=== PATIENT | female | born 1990 | race Caucasian/White ===

== ENCOUNTER 2017-03-26 10:41 | Emergency (ER) | payer BC, OTHER ==
[2017-03-26 10:47] VITALS: RESP 16
[2017-03-26] MEDS ORDERED: KETOROLAC 30 MG/ML 1 ML VIAL IVP STA (11:28)
[2017-03-26] MEDS ORDERED: ONDANSETRON 4 MG/2 ML VIAL IVP STA (11:28)
[2017-03-26 11:29] LABS: Appearance,Urine Clear (Clear); Bilirubin,Urine Negative (Negative); Blood,Urine Negative (Negative); Color,Urine Red; Glucose,Urine (UA) 4+ (Negative); Leukocyte Esterase,Urine Negative (Negative); Nitrite,Urine Negative (Negative); PH, Urine 5.5 (5.0-8.0); Protein,Urine Negative (Negative); Specific Gravity,Urine 1.021 (1.001-1.035); Urobilinogen,Urine <2.0 mg/dL (<2.0)
[2017-03-26 11:35] LABS: Ketones,Urine 2+ (Negative)
[2017-03-26] MEDS ORDERED: SODIUM CHLORIDE 0.9% 1,000 ML IV ONE (11:46)
[2017-03-26 12:06] LABS: Basophils % (A) 0 %; Eosinophils % (A) 1 %; HCT 41.7 % (34.0-46.0); HGB 13.4 gm/dL (11.4-16.0); Lymphocytes # (A) 0.5 k/uL (1.0-4.8); Lymphocytes % (A) 7 %; MCH 29.1 pg (25.0-35.0); MCHC 32.2 g/dL (31.0-37.0); MCV 90.4 fL (80.0-100.0); Mean Platelet Volume 7.7; Monocytes # (A) 0.2 k/uL (0-1.0); Monocytes % (A) 3 %; Neutrophils # (A) 6.7 k/uL (1.3-7.7); Neutrophils % (A) 89 %; Platelet Count 267 k/uL (150-450); RBC 4.61 m/uL (3.80-5.40); RDW 12.5 % (11.5-15.5); WBC 7.5 k/uL (3.8-10.6)
[2017-03-26 12:16] LABS: ALT 55 U/L (9-52); AST 38 U/L (14-36); Albumin 4.1 g/dL (3.5-5.0); Alkaline Phosphatase 107 U/L (38-126); Anion Gap 10 mmol/L; Blood Urea Nitrogen 12 mg/dL (7-17); Calcium 9.5 mg/dL (8.4-10.2); Carbon Dioxide 26 mmol/L (22-30); Chloride 102 mmol/L (98-107); Glucose 276 mg/dL (74-99); Potassium 4.8 mmol/L (3.5-5.1); Sodium 138 mmol/L (137-145); Total Bilirubin 1.2 mg/dL (0.2-1.3)
--- NOTE | 2017-03-26 12:26 | ED ---
Abdominal Pain HPI - General Chief Complaint: Abdominal Pain Stated Complaint: poss uti Time Seen by Provider: 03/26/17 11:15 Source: patient, RN notes reviewed, old records reviewed Mode of arrival: ambulatory Limitations: no limitations - History of Present Illness Initial Comments: Patient is a pleasant 26-year-old female presents emergency Department chief complaint of an episode of severe flank pain and back pain that occurred this morning. She reports she had vomiting as well. She states that the pain lasted for 30 minutes and started to subside. She was treated for urinary tract infection with Macrobid and started the antibiotics yesterday. She states that she's had no fever or chills. Denies any previous nausea or vomiting besides the one episode today. She states that she has no significant surgical history besides a hip surgery many years ago. She is a type I diabetic. Her blood sugars have been running normal. - Related Data Home Medications Medication Instructions Recorded Confirmed INSULIN LISPRO (For Pump) [humaLOG 0.01 units SQ-PUMP CONTINUOUS 03/26/17 (For Pump)] Levothyroxine Sodium [Synthroid] 88 mcg PO DAILY 03/26/17 03/26/17 Nitrofurantoin Monohyd/M-Cryst 100 mg PO BID 03/26/17 03/26/17 [Macrobid] Previous Rx's Medication Instructions Recorded Ketorolac [Toradol] 10 mg PO TID PRN #15 tab 03/26/17 Ondansetron Odt [Zofran Odt] 4 mg PO Q8HR PRN #12 tab 03/26/17 Allergies Allergy/AdvReac Type Severity Reaction Status Date / Time fluconazole Allergy Rash/Hives Verified 03/26/17 12:16 Review of Systems ROS Statement: Those systems with pertinent positive or pertinent negative responses have been documented in the HPI. ROS Other: All systems not noted in ROS Statement are negative. Past Medical History Past Medical History: Diabetes Mellitus, Thyroid Disorder Additional Past Medical History / Comment(s): type 1 diabetic History of Any Multi-Drug Resistant Organisms: None Reported Additional Past Surgical History / Comment(s): hip surg Past Psychological History: No Psychological Hx Reported Smoking Status: Never smoker Past Alcohol Use History: Occasional Past Drug Use History: None Reported General Exam - General Exam Comments Initial Comments: 26-year-old female. No distress. Limitations: no limitations General appearance: alert, in no apparent distress Head exam: Present: atraumatic, normocephalic, normal inspection Eye exam: Present: normal appearance, PERRL, EOMI. Absent: scleral icterus, conjunctival injection, periorbital swelling ENT exam: Present: normal exam, mucous membranes moist Neck exam: Present: normal inspection. Absent: tenderness, meningismus, lymphadenopathy Respiratory exam: Present: normal lung sounds bilaterally. Absent: respiratory distress, wheezes, rales, rhonchi, stridor Cardiovascular Exam: Present: regular rate, normal rhythm, normal heart sounds. Absent: systolic murmur, diastolic murmur, rubs, gallop, clicks GI/Abdominal exam: Present: soft, tenderness (Leftt CVA tenderness.), normal bowel sounds. Absent: distended, guarding, rebound, rigid Extremities exam: Present: normal inspection, full ROM, normal capillary refill. Absent: tenderness, pedal edema, joint swelling, calf tenderness Back exam: Present: normal inspection Neurological exam: Present: alert, oriented X3, CN II-XII intact Psychiatric exam: Present: normal affect, normal mood Course Vital Signs 03/26/17 03/26/17 10:43 13:23 Temperature 97.9 F 98.0 F Pulse Rate 74 80 Respiratory 16 16 Rate Blood Pressure 115/69 113/69 O2 Sat by Pulse 100 98 Oximetry Medical Decision Making - Medical Decision Making 26-year-old type I diabetic presents today with sudden onset of sided flank pain and nausea and some vomiting. She [employer] reports her pain resolved. She is being treated for urinary tract infection with Macrobid. She started antibiotics yesterday. The patient has some minimal left CVA tenderness. No fever or chills. Patient is given IV fluids are obtained. Patient's labwork shows no leukocytosis. Urinalysis shows +2+ ketones and glucose. No other major symptoms at this time. Patient's urinalysis shows no blood in it. Discussed the patient likely has episodes of renal colic. Could' ve passed a stone. Discussed that I will discharge her with pain medicine and nausea medicine. She reports that she has 0 pain at this time. Discussed continuing the Macrobid antibiotic. Patient agrees treatment plan will comply. Return parameters were discussed. - Lab Data Result diagrams: 03/26/17 11:45 03/26/17 11:45 Lab Results 03/26/17 03/26/17 03/26/17 Range/Units 11:05 11:05 11:45 WBC 7.5 (3.8-10.6) k/uL RBC 4.61 (3.80-5.40) m/uL Hgb 13.4 (11.4-16.0) gm/dL Hct 41.7 (34.0-46.0) % MCV 90.4 (80.0-100.0) fL MCH 29.1 (25.0-35.0) pg MCHC 32.2 (31.0-37.0) g/dL RDW 12.5 (11.5-15.5) % Plt Count 267 (150-450) k/uL Neutrophils % 89 % Lymphocytes % 7 % Monocytes % 3 % Eosinophils % 1 % Basophils % 0 % Neutrophils # 6.7 (1.3-7.7) k/uL Lymphocytes # 0.5 L (1.0-4.8) k/uL Monocytes # 0.2 (0-1.0) k/uL Eosinophils # 0.0 (0-0.7) k/uL Basophils # 0.0 (0-0.2) k/uL Sodium (137-145) mmol/L Potassium (3.5-5.1) mmol/L Chloride (98-107) mmol/L Carbon Dioxide (22-30) mmol/L Anion Gap mmol/L BUN (7-17) mg/dL Creatinine (0.52-1.04) mg/dL Est GFR (MDRD) Af Amer (>60 ml/min/1.73 sqM) Est GFR (MDRD) Non-Af (>60 ml/min/1.73 sqM) Glucose (74-99) mg/dL Calcium (8.4-10.2) mg/dL Total Bilirubin (0.2-1.3) mg/dL AST (14-36) U/L ALT (9-52) U/L Alkaline Phosphatase (38-126) U/L Total Protein (6.3-8.2) g/dL Albumin (3.5-5.0) g/dL Urine Color Red Urine Appearance Clear (Clear) Urine pH 5.5 (5.0-8.0) Ur Specific [place] 1.021 (1.001-1.035) Urine Protein Negative (Negative) Urine Glucose (UA) 4+ H (Negative) Urine Ketones 2+ H (Negative) Urine Blood Negative (Negative) Urine Nitrite Negative (Negative) Urine Bilirubin Negative (Negative) Urine Urobilinogen <2.0 (<2.0) mg/dL Ur Leukocyte Esterase Negative (Negative) Urine HCG, Qual Not Detected (Not Detectd) Acetone, Qual (Negative) 03/26/17 Range/Units 11:45 WBC (3.8-10.6) k/uL RBC (3.80-5.40) m/uL Hgb (11.4-16.0) gm/dL Hct (34.0-46.0) % MCV (80.0-100.0) fL MCH (25.0-35.0) pg MCHC (31.0-37.0) g/dL RDW (11.5-15.5) % Plt Count (150-450) k/uL Neutrophils % % Lymphocytes % % Monocytes % % Eosinophils % % Basophils % % Neutrophils # (1.3-7.7) k/uL Lymphocytes # (1.0-4.8) k/uL Monocytes # (0-1.0) k/uL Eosinophils # (0-0.7) k/uL Basophils # (0-0.2) k/uL Sodium 138 (137-145) mmol/L Potassium 4.8 (3.5-5.1) mmol/L Chloride 102 (98-107) mmol/L Carbon Dioxide 26 (22-30) mmol/L Anion Gap 10 mmol/L BUN 12 (7-17) mg/dL Creatinine 0.70 (0.52-1.04) mg/dL Est GFR (MDRD) Af Amer >60 (>60 ml/min/1.73 sqM) Est GFR (MDRD) Non-Af >60 (>60 ml/min/1.73 sqM) Glucose 276 H (74-99) mg/dL Calcium 9.5 (8.4-10.2) mg/dL Total Bilirubin 1.2 (0.2-1.3) mg/dL AST 38 H (14-36) U/L ALT 55 H (9-52) U/L Alkaline Phosphatase 107 (38-126) U/L Total Protein 7.0 (6.3-8.2) g/dL Albumin 4.1 (3.5-5.0) g/dL Urine Color Urine Appearance (Clear) Urine pH (5.0-8.0) Ur Specific [place] (1.001-1.035) Urine Protein (Negative) Urine Glucose (UA) (Negative) Urine Ketones (Negative) Urine Blood (Negative) Urine Nitrite (Negative) Urine Bilirubin (Negative) Urine Urobilinogen (<2.0) mg/dL Ur Leukocyte Esterase (Negative) Urine HCG, Qual (Not Detectd) Acetone, Qual Negative (Negative) - Radiology Data Radiology results: report reviewed KUB as needed for any acute process. Disposition Clinical Impression: Renal colic on left side Disposition: HOME SELF-CARE Condition: Good Instructions: Renal Colic (ED) Additional Instructions: Patient should continue the antibiotic prescription. Follow-up with primary care provider within the next 1-2 days. Return to the emergency department if any alarming signs or symptoms occur, including fever or chills. Prescriptions: Ketorolac [Toradol] 10 mg PO TID PRN #15 tab PRN Reason: Pain Ondansetron Odt [Zofran Odt] 4 mg PO Q8HR PRN #12 tab PRN Reason: Nausea Referrals: Lupe Marin MD [Primary Care Provider] - 1-2 days Time of Disposition: 13:11
--- NOTE | 2017-03-26 12:39 | XR ---
EXAMINATION TYPE: XR KUB , 2 VIEWS DATE OF EXAM ORDERED: 03/26/2017 HISTORY: Pain. COMPARISON: None. FINDINGS: The lung bases are clear. Within the abdomen, the abdominal gas pattern is normal. There is no evidence of obstruction or free air. No unusual calcifications are seen. IMPRESSION: NO ACUTE INTRA-ABDOMINAL ABNORMALITY.
[2017-03-26 13:24] VITALS: BP 113/69; PULSE 80; TEMP 98
== END 2017-03-26 13:23 | disposition home or self-care (01) ==
LOC: EC 10:41
DX: N23 Unspecified renal colic (principal); E10.9 Type 1 diabetes mellitus without complications; E07.9 Disorder of thyroid, unspecified; Z79.4 Long term (current) use of insulin; Z79.899 Other long term (current) drug therapy; Z88.1 Allergy status to other antibiotic agents
CPT/HCPCS: 99284 ×2; 96374 ×2; 96375 ×2; 96361 ×2; 36415; 80053; 82009; 85025; 81003; 81025; 87086; 74018; J2405; J1885

== ENCOUNTER 2017-03-27 09:49 | Emergency (ER) | payer OTHER ==
[2017-03-27 09:55] VITALS: TEMP 98.1
[2017-03-27] MEDS ORDERED: KETOROLAC 30 MG/ML 1 ML VIAL IVP STA (10:13)
[2017-03-27] MEDS ORDERED: HYDROmorphone 1 MG/ML 1 ML SYRINGE IVP STA ×2 (10:13→12:07)
[2017-03-27] MEDS ORDERED: ONDANSETRON 4 MG/2 ML VIAL IVP STA (10:13)
[2017-03-27] MEDS ORDERED: SODIUM CHLORIDE 0.9% 1,000 ML IV STA ×2 (10:13)
[2017-03-27] MEDS ORDERED: RX INFO: IV CONTRAST WAS GIVEN 1 EACH MISC MISCELLANE PRN (10:13)
--- NOTE | 2017-03-27 10:19 | ED ---
Back Pain HPI - General Chief Complaint: Back Pain/Injury Stated Complaint: BACK PAIN Time Seen by Provider: 03/27/17 09:59 Source: patient, RN notes reviewed, old records reviewed Limitations: no limitations - History of Present Illness Initial Comments: 26-year-old female presents emergency Department with a chief complaint of increased left-sided back pain. She was evaluated in ED yesterday for similar complaints, but she was discharged and she is pain-free at the time. She reports the pain started again last night. She states that she will verify 30 this morning and was unable to hold any fluids down. She's been vomiting. Patient reports that she is chilled. She's been taking her antibiotics that were prescribed to her by [facility] but she reports that she threw them up. - Related Data Home Medications Medication Instructions Recorded Confirmed INSULIN LISPRO (For Pump) [humaLOG 0.01 units SQ-PUMP CONTINUOUS 03/26/17 (For Pump)] Levothyroxine Sodium [Synthroid] 88 mcg PO DAILY 03/26/17 03/27/17 Previous Rx's Medication Instructions Recorded Ciprofloxacin HCl [Cipro] 500 mg PO Q12HR 7 Days tab 03/27/17 Docusate [Colace] 100 mg PO DAILY #15 capsule 03/27/17 HYDROcodone/APAP 5-325MG [[place] 1 - 2 tab PO Q4H PRN #15 tab 03/27/17 5-325] Tamsulosin [Flomax] 0.4 mg PO DAILY #10 cap 03/27/17 Allergies Allergy/AdvReac Type Severity Reaction Status Date / Time fluconazole Allergy Rash/Hives Verified 03/27/17 10:23 Review of Systems ROS Statement: Those systems with pertinent positive or pertinent negative responses have been documented in the HPI. ROS Other: All systems not noted in ROS Statement are negative. Past Medical History Past Medical History: Diabetes Mellitus, Thyroid Disorder Additional Past Medical History / Comment(s): type 1 diabetic History of Any Multi-Drug Resistant Organisms: None Reported Additional Past Surgical History / Comment(s): hip surg Past Psychological History: No Psychological Hx Reported Smoking Status: Never smoker Past Alcohol Use History: Occasional Past Drug Use History: None Reported General Exam - General Exam Comments Initial Comments: 26-year-old female. Appears discomfort. Limitations: no limitations General appearance: alert, in no apparent distress Head exam: Present: atraumatic, normocephalic, normal inspection Eye exam: Present: normal appearance, PERRL, EOMI. Absent: scleral icterus, conjunctival injection, periorbital swelling ENT exam: Present: normal exam, mucous membranes moist Neck exam: Present: normal inspection. Absent: tenderness, meningismus, lymphadenopathy Respiratory exam: Present: normal lung sounds bilaterally. Absent: respiratory distress, wheezes, rales, rhonchi, stridor Cardiovascular Exam: Present: regular rate, normal rhythm, normal heart sounds. Absent: systolic murmur, diastolic murmur, rubs, gallop, clicks GI/Abdominal exam: Present: soft, tenderness (Left lower quadrant tenderness. Left CVA tenderness), normal bowel sounds. Absent: distended, guarding, rebound , rigid Extremities exam: Present: normal inspection, full ROM, normal capillary refill. Absent: tenderness, pedal edema, joint swelling, calf tenderness Back exam: Present: normal inspection, CVA tenderness (L) Neurological exam: Present: alert, oriented X3, CN II-XII intact Psychiatric exam: Present: normal affect, normal mood Course Vital Signs 03/27/17 03/27/17 09:52 12:33 Temperature 98.1 F Pulse Rate 101 H 86 Respiratory 18 16 Rate Blood Pressure 132/99 98/52 O2 Sat by Pulse 98 99 Oximetry Medical Decision Making - Medical Decision Making 26-year-old female presents emergency Department with a chief complaint of increased left-sided back pain. She was evaluated in ED yesterday for similar complaints. She has had multiple episodes of vomting. Patient has LLQ and left CVA tenderness. Treated with macrobid from [facility] for UTI 2 days ago. Today , patient urine shows RBC. Consistent with ureteral stone. mild leukocytosis compared to yesterady, but can be inflammatory related to vomiting. Urine has no WBC. Patient had CT abodmen and pelvis. CT shows possible mild colitis or poor dilatoion of lower colon. Patient reports no diarrhea or colitis like symptoms. On my review of CT, I suspect 2-3 mm stone within UVJ. No hydrophenosis noted. Will start patient on pain medication, flomax, and discussed having Rx for cipro if urine culture is positive for bacteria resisitent to macrobid. Discussed follow up with PCP and urology. Return parameters discussed. - Lab Data Result diagrams: 03/27/17 10:47 03/27/17 10:47 Lab Results 03/27/17 03/27/17 03/27/17 Range/Units 10:00 10:47 10:47 WBC 10.6 (3.8-10.6) k/uL RBC 4.39 (3.80-5.40) m/uL Hgb 12.9 (11.4-16.0) gm/dL Hct 39.3 (34.0-46.0) % MCV 89.4 (80.0-100.0) fL MCH 29.4 (25.0-35.0) pg MCHC 32.9 (31.0-37.0) g/dL RDW 12.5 (11.5-15.5) % Plt Count 265 (150-450) k/uL Neutrophils % 85 % Lymphocytes % 10 % Monocytes % 4 % Eosinophils % 1 % Basophils % 0 % Neutrophils # 9.0 H (1.3-7.7) k/uL Lymphocytes # 1.0 (1.0-4.8) k/uL Monocytes # 0.4 (0-1.0) k/uL Eosinophils # 0.1 (0-0.7) k/uL Basophils # 0.0 (0-0.2) k/uL Sodium 138 (137-145) mmol/L Potassium 4.2 (3.5-5.1) mmol/L Chloride 104 (98-107) mmol/L Carbon Dioxide 22 (22-30) mmol/L Anion Gap 12 mmol/L BUN 11 (7-17) mg/dL Creatinine 0.80 (0.52-1.04) mg/dL Est GFR (MDRD) Af Amer >60 (>60 ml/min/1.73 sqM) Est GFR (MDRD) Non-Af >60 (>60 ml/min/1.73 sqM) Glucose 210 H (74-99) mg/dL Calcium 9.7 (8.4-10.2) mg/dL Total Bilirubin 1.1 (0.2-1.3) mg/dL AST 31 (14-36) U/L ALT 57 H (9-52) U/L Alkaline Phosphatase 100 (38-126) U/L Total Protein 6.9 (6.3-8.2) g/dL Albumin 4.0 (3.5-5.0) g/dL Amylase 45 (30-110) U/L Lipase 41 (23-300) U/L Urine Color Yellow Urine Appearance Clear (Clear) Urine pH 5.5 (5.0-8.0) Ur Specific [place] 1.020 (1.001-1.035) Urine Protein Negative (Negative) Urine Glucose (UA) 4+ H (Negative) Urine Ketones Trace H (Negative) Urine Blood Small H (Negative) Urine Nitrite Negative (Negative) Urine Bilirubin Negative (Negative) Urine Urobilinogen <2.0 (<2.0) mg/dL Ur Leukocyte Esterase Negative (Negative) Urine RBC 10 H (0-5) /hpf Urine WBC 4 (0-5) /hpf Ur Squamous Epith Cells <1 (0-4) /hpf Urine Bacteria Rare H (None) /hpf Urine Mucus Few H (None) /hpf - Radiology Data Radiology results: report reviewed Collapse of descentding and sigmoid colon, corolate for colitis. Disposition Clinical Impression: Left ureteral stone Disposition: HOME SELF-CARE Condition: Good Instructions: Ureteral Stones (ED) Additional Instructions: Patient should follow-up with primary care provider. Start cipro antibiotic, if culture is abnormal tomorrow, we will call you if abnormal culture. Return to the emergency department if any alarming signs or symptoms occur. Increase her fluid intake. Prescriptions: Ciprofloxacin HCl [Cipro] 500 mg PO Q12HR 7 Days tab Docusate [Colace] 100 mg PO DAILY #15 capsule HYDROcodone/APAP 5-325MG [[place] 5-325] 1 - 2 tab PO Q4H PRN #15 tab PRN Reason: Pain Tamsulosin [Flomax] 0.4 mg PO DAILY #10 cap Referrals: Lupe Marin MD [Primary Care Provider] - 1-2 days Erick Franco MD [STAFF PHYSICIAN] - 1-2 days Time of Disposition: 12:26
[2017-03-27 10:46] LABS: Appearance,Urine Clear (Clear); Bacteria,Urine Rare /hpf; Bilirubin,Urine Negative (Negative); Blood,Urine Small (Negative); Color,Urine Yellow; Glucose,Urine (UA) 4+ (Negative); Ketones,Urine Trace (Negative); Leukocyte Esterase,Urine Negative (Negative); Mucus,Urine Few /hpf; Nitrite,Urine Negative (Negative); PH, Urine 5.5 (5.0-8.0); Protein,Urine Negative (Negative); RBC,Urine 10 /hpf (0-5); Squamous Epithelial Cell,Urine <1 /hpf (0-4); Urobilinogen,Urine <2.0 mg/dL (<2.0); WBC,Urine 4 /hpf (0-5)
[2017-03-27 11:02] LABS: Basophils % (A) 0 %; Eosinophils # (A) 0.1 k/uL (0-0.7); Eosinophils % (A) 1 %; HCT 39.3 % (34.0-46.0); HGB 12.9 gm/dL (11.4-16.0); Lymphocytes % (A) 10 %; MCH 29.4 pg (25.0-35.0); MCHC 32.9 g/dL (31.0-37.0); MCV 89.4 fL (80.0-100.0); Mean Platelet Volume 7.6; Monocytes # (A) 0.4 k/uL (0-1.0); Monocytes % (A) 4 %; Neutrophils % (A) 85 %; Platelet Count 265 k/uL (150-450); RBC 4.39 m/uL (3.80-5.40); RDW 12.5 % (11.5-15.5); WBC 10.6 k/uL (3.8-10.6)
[2017-03-27] MEDS ORDERED: diphenhydrAMINE 50 MG/ML 1 ML VIAL IVP STA (11:09)
[2017-03-27] MEDS ORDERED: METOCLOPRAMIDE 5 MG/ML 2 ML VIAL IVP STA (11:09)
[2017-03-27 11:11] LABS: ALT 57 U/L (9-52); AST 31 U/L (14-36); Alkaline Phosphatase 100 U/L (38-126); Amylase 45 U/L (30-110); Anion Gap 12 mmol/L; Blood Urea Nitrogen 11 mg/dL (7-17); Calcium 9.7 mg/dL (8.4-10.2); Carbon Dioxide 22 mmol/L (22-30); Chloride 104 mmol/L (98-107); Glucose 210 mg/dL (74-99); Lipase 41 U/L (23-300); Potassium 4.2 mmol/L (3.5-5.1); Sodium 138 mmol/L (137-145); Total Bilirubin 1.1 mg/dL (0.2-1.3); Total Protein 6.9 g/dL (6.3-8.2)
--- NOTE | 2017-03-27 11:39 | CT ---
EXAMINATION TYPE: CT abdomen pelvis w con DATE OF EXAM: 03/27/2017 REFERENCE: NONE HISTORY: abdominal pain HISTORY: Lt flank pain, radiating around front, vomiting REFERENCE: NONE CT DLP: 550.6 mGy Automated exposure control for dose reduction was used. TECHNIQUE: Helical acquisition through the abdomen and pelvis was obtained following the oral ingesti on of without Oral Contrast and following intravenous administration of 100 mL of Omnipaque 300. The data was reformatted in axial, coronal and sagittal projections. FINDINGS: Visualized portions of the lungs are clear. There is no pleural or pericardial fluid. The heart is not enlarged. Within the abdomen, the liver, spleen and gallbladder are normal. Both adrenal glands are normal. Both kidneys demonstrate function and appear morphologically normal. The pancreas is unremarkable. There is no significant retroperitoneal, iliac or inguinal adenopathy. The bladder is unremarkable. The uterus and ovaries are normal. There is scant free fluid within the pelvis. Much of the sigmoid colon is collapsed as it is much of the descending colon. This makes assessment o f the bowel wall difficult. The right side of the colon and transverse colon are filled with feces. T he appendix is not visualized with certainty. There is no pericecal inflammatory disease. Small bowel caliber is normal. No free fluid is seen. There is partial sacralization of the left side of the L5 vertebral body. No osseous destructive lesi on is seen. IMPRESSION: COLLAPSE OF THE DESCENDING AND SIGMOID COLON. PLEASE ASSESS CLINICALLY TO EXCLUDE COLITIS.
[2017-03-27] MEDS ORDERED: TAMSULOSIN 0.4 MG CAP.ER.24H PO STA (11:53)
[2017-03-27] MEDS ORDERED: CIPROFLOXACIN HCL 500 MG TAB PO STA (12:27)
[2017-03-27 12:34] VITALS: BP 98/52; PULSE 86; RESP 16
== END 2017-03-27 12:45 | disposition home or self-care (01) ==
LOC: EC 09:49
DX: N20.1 Calculus of ureter (principal); E07.9 Disorder of thyroid, unspecified; E10.9 Type 1 diabetes mellitus without complications; Z79.4 Long term (current) use of insulin; Z79.899 Other long term (current) drug therapy; Z88.1 Allergy status to other antibiotic agents
CPT/HCPCS: 36415; 80053; 82150; 83690; 85025; 81001; 74177; 99284; 96374; 96375 ×4; 96376; 96361 ×2; J1200; J2765; J2405; J1885; J1170; Q9967

== ENCOUNTER → 2017-10-19 | Outpatient (CLI) | payer OTHER ==
--- NOTE | 2017-10-19 08:25 | US ---
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 Pt states possible nodule felt by physician, pt on synthroid x 5 years GLAND SIZE: Right Lobe: 5.1 x 1.3 x 1.8 cm Overall Parenchyma: heterogenous Left Lobe: 4.2 x 1.3 x 1.5 cm Overall Parenchyma: heterogeneous Isthmus Thickness: 0.3 cm Bilateral neck scanned, no evidence of lymphadenopathy. Bilateral thyroid grossly heterogeneous as se en on previous with no definite nodules. Thyroid also hypervascular anterior portion. IMPRESSION: Enlarged, diffusely heterogenous, and hypervascular thyroid gland without discrete measurable nodule. Findings are most sonographically compatible with thyroiditis.
== END | disposition home or self-care (01) ==
LOC: RADUSWWP 07:58
PROVIDERS: ATTEND Internal Medicine Endocrinology, Diabetes & Metabolism
DX: E04.9 Nontoxic goiter, unspecified (principal)
CPT/HCPCS: 76536

== ENCOUNTER 2020-10-30 21:07 | Outpatient (CLI) | payer BC ==
[2020-10-30] MEDS ORDERED: LACTATED RINGERS 1,000 ML IV SCH (21:45)
[2020-10-30 22:21] LABS: Appearance,Urine Cloudy (Clear); Bacteria,Urine Moderate /hpf; Bilirubin,Urine Negative (Negative); Blood,Urine Negative (Negative); Color,Urine Light Yellow; Glucose,Urine (UA) Negative (Negative); Ketones,Urine Negative (Negative); Leukocyte Esterase,Urine Moderate (Negative); Nitrite,Urine Negative (Negative); PH, Urine 6.5 (5.0-8.0); Protein,Urine Negative (Negative); RBC,Urine <1 /hpf (0-5); Specific Gravity,Urine 1.005 (1.001-1.035); Squamous Epithelial Cell,Urine 1 /hpf (0-4); Urobilinogen,Urine <2.0 mg/dL (<2.0); WBC,Urine 4 /hpf (0-5)
[2020-10-30 23:01] VITALS: BP 134/70; PULSE 102; RESP 16; TEMP 98.1
--- NOTE | 2020-11-17 09:34 | P.MSEPDOC ---
Presenting Problems - Arrival Data Date of Arrival on Unit: 10/30/20 Time of Arrival on Unit: 21:07 Mode of Transport: Ambulatory - Complaint OB-Reason for Admission/Chief Complaint: Other Comment: consistent abdominal tighening from 10am to current 2106, patient denies any pain Medical History - Information : 1 Para: 0 Term: 0 : 0 Abortions: Spontaneous or Elective: 0 Number of Living Children: 0 - Gestational Age Gestational Age by PERICO (wks/days): 33 Weeks and 4 Days - History Comment: type 1 diabetic Review of Systems - Review of Systems Constitutional: No problems Breast: No problems ENT: No problems Cardiovascular: No problems Respiratory: No problems Gastrointestinal: No problems Genitourinary: No problems Musculoskeletal: No problems Neurological: No problems Skin: No problems Vital Signs - Temperature Temperature: 98.1 F Temperature Source: Temporal Artery Scan - Pulse Pulse Oximetery Pulse Rate: 102 Pulse Assessment Method: Automatic Cuff - Respirations Respiratory Rate: 16 Oxygen Delivery Method: Room Air O2 Sat by Pulse Oximetry: 99 - Blood Pressure Left Arm Blood Pressure: 134/70 Blood Pressure Mean: 91 Blood Pressure Source: Automatic Cuff Medical Screen Scoring - Cervical Exam Dilation (cm): 0 Membranes: Intact - Uterine Contractions Frequency From (mins): 2 Frequency To (mins): 5 Duration From (seconds): 30 Duration To (seconds): 50 Resting: Soft to palpation - Assessment - Baby A Baseline FHR: 140 Heart Rate - NICHD Category: Category I (Normal) NST: Reactive Physician Notification - Physician Notified Physician Notified Date: 10/30/20 Physician Notified Time: 21:24 Physician: Yaa Phipps New Order Received: Yes - Notification Comment Comment: order to send UA, start IV give 1Liter LR bolus, and check cervix, cervix closed thick and high, UA reviewed, Dr. Phipps will be calling in an antibotic to patient pharmacy in the morning for her to start., tighening resolved per patient, order to discharge patient home Maternal Triage Index - Maternal Triage Index Presenting for scheduled procedure w/no complaint: No - Stat/Priority 1 Stat Priority 1: No - Urgent/Priority 2 Urgent Priority 2: Yes Provider Notified: Yaa Phipps Provider Notified Time: 21:24 Criteria Met for Priority 2: pt. 33 weeks and 4 days, c/o ABD tightening that is consistent, contractions tracing on toco irregular 2-5 min. patient denies any pain - Prompt/Priority 3 Prompt Priority 3: No - Non-Urgent/Priority 4 Non-Urgent Priority 4: No Disposition - Disposition OB Disposition: Discharge to home Discharge Date: 10/30/20 Discharge Time: 22:41 I agree with the RN Medical Screening Exam: Yes Case reviewed; plan agreed upon as documented in EMR&OBIX.: Yes Comments: Patient was neither seen nor examined by me Diagnosis: OI47.03
== END 2020-10-30 22:41 | disposition home or self-care (01) ==
LOC: FBPOP 21:07
PROVIDERS: ATTEND Obstetrics & Gynecology
DX: O47.03 False labor before 37 completed weeks of gestation, third trimester (principal); O24.013 Pre-existing type 1 diabetes mellitus, in pregnancy, third trimester; E10.8 Type 1 diabetes mellitus with unspecified complications; Z3A.33 33 weeks gestation of pregnancy; Z88.2 Allergy status to sulfonamides
CPT/HCPCS: 59025; 81001; 87086; 96360; 99213

== ENCOUNTER 2020-12-05 07:50 | Inpatient (IN) | payer BC ==
[2020-12-04 13:05] VITALS: BMI 36.8
[2020-12-05] MEDS ORDERED: LACTATED RINGERS 1,000 ML IV ONE (08:14)
[2020-12-05] MEDS ORDERED: CITRIC ACID-SODIUM CITRATE 15 ML CUP PO ONE (08:14)
[2020-12-05 08:42] LABS: Basophils # (A) 0.1 k/uL (0-0.2); Basophils % (A) 1 %; Eosinophils # (A) 0.4 k/uL (0-0.7); Eosinophils % (A) 4 %; HCT 29.6 % (34.0-46.0); HGB 10.1 gm/dL (11.4-16.0); Lymphocytes # (A) 1.2 k/uL (1.0-4.8); Lymphocytes % (A) 14 %; MCH 30.1 pg (25.0-35.0); MCHC 34.2 g/dL (31.0-37.0); MCV 87.9 fL (80.0-100.0); Mean Platelet Volume 9.9; Monocytes # (A) 0.6 k/uL (0-1.0); Monocytes % (A) 6 %; Neutrophils # (A) 6.7 k/uL (1.3-7.7); Neutrophils % (A) 73 %; Platelet Count 187 k/uL (150-450); RBC 3.37 m/uL (3.80-5.40); RDW 13.2 % (11.5-15.5); WBC 9.2 k/uL (3.8-10.6)
--- NOTE | 2020-12-05 09:23 | P.HPOB ---
History of Present Illness H&P Date: 12/05/20 Chief Complaint: 38+ weeks, insulin-dependent gestational diabetes The patient is a 30-year-old 1 para 0 admitted at 38+ weeks as established by last menstrual period and confirmed by second trimester ultrasound. She is admitted for elective primary section secondary to a diagnosis of pre-gestational type 1 diabetes managed very effectively with the an insulin pump during the . She had a recent ultrasound demonstrating growth at just shy of 4000 g and has a very unfavorable cervix. Given all these findings, we had a long discussion regarding options for delivery as she is at a point where delivery is indicated. Ultimately, we opted to proceed with primary low-transverse section for the safety of both mother and baby. Her was otherwise essentially uncomplicated though she is known to be group B strep positive. She also is Rh- and received RhoGAM at approximately 28 weeks. On labor and delivery, all signs reassuring with a category 1 heart tracing. Obstetrical history: 1 para 0 with current statistics listed in history present illness. EDC of 12/14/2020 was established by last menstrual period and confirmed by second trimester ultrasound. Laboratory workup demonstrates a blood type of O- with a negative antibody screen. Rubella status is immune. The remainder of the laboratory workup was within normal limits. Glucola wasn't necessary as the patient carries a diagnosis of pre-gestational diabetes. Group B strep status is positive. Gynecologic history: Unremarkable with no history of any infections to include STDs. Review of Systems Review of systems is confined to history of present illness. Past Medical History Past Medical History: Diabetes Mellitus, Thyroid Disorder Additional Past Medical History / Comment(s): type 1 diabetic History of Any Multi-Drug Resistant Organisms: None Reported Past Surgical History: Orthopedic Surgery Additional Past Surgical History / Comment(s): right hip surg related to hip dysplasia Past Anesthesia/Blood Transfusion Reactions: No Reported Reaction Past Psychological History: No Psychological Hx Reported Smoking Status: Never smoker Past Alcohol Use History: Occasional Additional Past Alcohol Use History / Comment(s): not during Past Drug Use History: None Reported - Past Family History Mother Family Medical History: Diabetes Mellitus Medications and Allergies Home Medications Medication Instructions Recorded Confirmed Type INSULIN LISPRO (For Pump) [humaLOG 0.01 units SQ-PUMP CONTINUOUS 03/26/17 12/05/20 History (For Pump)] Levothyroxine Sodium [Synthroid] 112 mcg PO DAILY 03/26/17 12/05/20 History Pnv No.95/Ferrous Fum/Folic AC 1 tab PO DAILY 10/30/20 12/05/20 History [ Multivitamin Tablet] Allergies Allergy/AdvReac Type Severity Reaction Status Date / Time fluconazole Allergy Rash/Hives Verified 12/05/20 08:14 Exam Vital Signs Temp Pulse Resp BP Pulse Ox 12/05/20 08:20 96.9 F L 64 16 124/76 98 Intake and Output 12/04/20 12/05/20 12/05/20 22:59 06:59 14:59 Other: Weight 94.347 kg In general, this is a well-developed, well-nourished white female in no acute distress. Her heart has a regular rhythm and rate without murmur. Her lungs are clear to auscultation bilateral mireles. Her abdomen is gravid, nondistended, has normal active bowel sounds, soft, nontender, and without any palpable masses aside from uterine fundus. Her extremities without any cyanosis, clubbing, or significant edema and are nontender to palpation bilaterally. Digital cervical examination is deferred. Results Result Diagrams: 12/05/20 08:24 Abnormal Lab Results - Last 24 Hours (Table) 12/05/20 Range/Units 08:24 RBC 3.37 L (3.80-5.40) m/uL Hgb 10.1 L (11.4-16.0) gm/dL Hct 29.6 L (34.0-46.0) % Assessment and Plan (1) Unfavorable cervix in term Current Visit: Yes Status: Acute Code(s): O34.40 - MATERNAL CARE FOR OTH ABNLT OF CERVIX, UNSP TRIMESTER SNOMED Code(s): 188344742 (2) Term Current Visit: Yes Status: Acute Code(s): Z34.90 - ENCNTR FOR SUPRVSN OF NORMAL , UNSP, UNSP TRIMESTER SNOMED Code(s): 15677428 (3) Insulin dependent diabetes mellitus Current Visit: Yes Status: Acute Code(s): XPF8964 - SNOMED Code(s): 03264501 Plan: After extensive discussions regarding options for delivery in the office setting, the patient agreed to proceed with elective primary low-transverse section. The risks and complications the procedure been thoroughly discussed and she has understood and agreed to proceed.
[2020-12-05] MEDS: LACTATED RINGERS 1,000 ML IV SCH ×5 (09:45→22:24)
[2020-12-05] MEDS ORDERED: NALBUPHINE 10 MG/ML (1 ML AMP) ONE (09:47)
[2020-12-05] MEDS ORDERED: OXYTOCIN 30 UNITS/500 ML NS BAG IV ONE (09:47)
[2020-12-05] MEDS ORDERED: ONDANSETRON 4 MG/2 ML VIAL ONE (09:47)
[2020-12-05] MEDS ORDERED: KETOROLAC 15 MG/ML 1 ML VIAL ONE (09:47)
[2020-12-05] MEDS ORDERED: diphenhydrAMINE 50 MG/ML 1 ML VIAL ONE (09:47)
[2020-12-05] MEDS ORDERED: MORPHINE SULFATE (PF) 0.3 MG/0.3 ML SYR ONE (09:47)
[2020-12-05] MEDS ORDERED: ONDANSETRON 4 MG/2 ML VIAL IVP PRN (10:46)
[2020-12-05] MEDS ORDERED: diphenhydrAMINE 50 MG CAP PO PRN (10:46)
[2020-12-05] MEDS ORDERED: ZOLPIDEM 5 MG TAB PO PRN (10:46)
[2020-12-05] MEDS ORDERED: METOCLOPRAMIDE 5 MG/ML 2 ML VIAL IVP PRN (10:46)
[2020-12-05] MEDS ORDERED: diphenhydrAMINE 50 MG/ML 1 ML VIAL IVP PRN ×2 (10:46)
[2020-12-05] MEDS ORDERED: NALOXONE 0.4 MG/ML 1 ML VIAL IV PRN (10:46)
[2020-12-05] MEDS ORDERED: LANOLIN CREAM 5 GM TUBE TOPICAL PRN (10:46)
[2020-12-05] MEDS ORDERED: HYDROmorphone 2 MG TAB PO PRN ×2 (10:46)
[2020-12-05] MEDS ORDERED: diphenhydrAMINE 25 MG CAP PO PRN (10:46)
--- NOTE | 2020-12-05 10:56 | P.OP ---
Date of Procedure: 12/05/20 Preoperative Diagnosis: #1. 38+ weeks, type 1 insulin-dependent diabetes #2. Unfavorable cervix #3. Suspected macrosomia Postoperative Diagnosis: Same Procedure(s) Performed: #1. Primary low-transverse section Anesthesia: spinal Surgeon: Leon Chandler Hand Cloth Cutter #1: Yael Adams Estimated Blood Loss (ml): 1,164 IV fluids (ml): 500 Urine output (ml): 200 Pathology: other (Placenta) Condition: stable Disposition: floor Operative Findings: Preoperatively, the patient and undergone outpatient ultrasound within the last week that demonstrated growth at just shy of 4000 g and the patient is a type 1 insulin-dependent diabetic. As her cervix was completely unfavorable and delivery at 38-39 weeks was indicated, we had discussions regarding options for delivery and opted to proceed with primary low-transverse section secondary to the potential risk for shoulder dystocia and either or maternal damage with delivery vaginally. She was taken the operating room where she was delivered of a viable 8 lbs. 1 oz. baby girl with Apgars of 8 at 1 minute and 9 at 5 minutes. There was a nuchal cord 1 which was reduced following delivery of the 's head prior to delivery of the body. The placenta was delivered manually, intact, and grossly normal with a grossly normal three-vessel cord. The uterus, tubes, and ovaries were entirely normal with the exception of 2 small, less than 1 cm posterior fundal fibroids that were subserosal in nature. There was moderate blood loss which was due most likely to a number of sinuses that were noted in the thick lower uterine segment which has not undergone any labor. Description of Procedure: The patient was prepped and draped in usual fashion after spinal anesthesia was administered by the anesthesiologist. A Pfannenstiel incision was made and extended into the abdominal cavity without difficulty. The bladder peritoneum was noted to be significant distal to the intended site of incision was left intact. A 2 cm incision was made in the transverse plane of the lower uterine segment to enter the uterus at which time clear fluid was noted. The incision was extended in both directions and there was a moderate amount of fluid present. The head was delivered up and through the incision where the nose and mouth were thoroughly suctioned. There was a nuchal cord 1 which was reduced at that time. The remainder of the was delivered onto the field where the cord was doubly clamped, cut, and the passed for resuscitative measures with weight and Apgars noted above. cord blood was collected secondary to Rh status and for assessment of need of RhoGAM. The placenta was delivered manually and intact as noted above. The uterus was exteriorized and the interior cavity of the uterus swept of any remaining placental or membranous fragments. The margins of the incision were grasped with Lawler clamps particularly at the sites of open bleeding sinuses. The incision was closed in 2 layers, the first layer being a running locking stitch of 0 chromic catgut from margin to margin followed by a running imbricating stitch of 0 chromic catgut from margin to margin. The posterior cul-de-sac was suctioned with a guard and laparotomy sponge was utilized as well. The uterine and ovarian findings were normal as noted above aside from 2 small fibroids as noted. The uterus was replaced within the abdominal cavity is and the gutters were swept of any remaining blood, fluid, or clot. The incision was reexamined and found to be hemostatic. The parietal peritoneum was loosely reapproximated in the layer of muscles examined and made hemostatic with the Bovie. The fascia was closed with a single running stitch of 0 Vicryl proceeding from margin to margin. Subcutaneous tissues were irrigated, made hemostatic with the Bovie, and reapproximated with a running stitch of 30 plain catgut. The skin was retracted with a running subcuticular stitch of 4-0 Vicryl from margin to margin followed by half-inch Steri-Strips placed with Mastisol. Estimated blood loss for the case was quantitated at 1164 mL. All sponge, instrument, and needle counts were correct. There were no complications. The patient tolerated the procedure well and proceeded to the recovery room in stable condition. Both mother and infant are resting comfortably in recovery.
[2020-12-05] MEDS ORDERED: OXYTOCIN 30 UNITS/500 ML NS 30 UNIT in SALINE 1 500ML.BAG IV SCH (11:00)
[2020-12-05] MEDS: ACETAMINOPHEN TAB 500 MG TAB PO SCH ×2 (13:26→22:59)
[2020-12-05] MEDS: KETOROLAC 15 MG/ML 1 ML VIAL IVP PRN ×2 (16:23→23:31)
[2020-12-05] MEDS ORDERED: Rhogam IMMUNE GLOBULIN 1,500 UNIT/1 ML IM ONE (17:42)
[2020-12-05] MEDS: IBUPROFEN 600 MG TAB PO SCH (17:43)
[2020-12-05] MEDS: SENNOSIDES-DOCUSATE SODIUM 1 EACH TAB PO SCH (22:59)
[2020-12-06] MEDS: IBUPROFEN 600 MG TAB PO SCH ×4 (02:34→18:25)
[2020-12-06] MEDS: KETOROLAC 15 MG/ML 1 ML VIAL IVP PRN (06:15)
[2020-12-06] MEDS: LEVOTHYROXINE 112 MCG TAB PO SCH (06:16)
[2020-12-06 06:25] LABS: Basophils % (A) 0 %; Eosinophils # (A) 0.1 k/uL (0-0.7); Eosinophils % (A) 1 %; HCT 26.1 % (34.0-46.0); HGB 8.8 gm/dL (11.4-16.0); Lymphocytes # (A) 1.2 k/uL (1.0-4.8); Lymphocytes % (A) 9 %; MCHC 33.5 g/dL (31.0-37.0); MCV 89.4 fL (80.0-100.0); Monocytes # (A) 0.7 k/uL (0-1.0); Monocytes % (A) 5 %; Neutrophils # (A) 11.2 k/uL (1.3-7.7); Neutrophils % (A) 84 %; Platelet Count 189 k/uL (150-450); RBC 2.92 m/uL (3.80-5.40); RDW 12.8 % (11.5-15.5); WBC 13.4 k/uL (3.8-10.6)
[2020-12-06] MEDS: ACETAMINOPHEN TAB 500 MG TAB PO SCH ×4 (08:59→20:40)
[2020-12-06] MEDS: LACTATED RINGERS 1,000 ML IV SCH ×2 (09:00→09:01)
[2020-12-06] MEDS: SENNOSIDES-DOCUSATE SODIUM 1 EACH TAB PO SCH ×2 (09:40→20:08)
--- NOTE | 2020-12-06 12:20 | P.PNOBGPC ---
Subjective - Subjective Patient reports: Reports appetite normal, Reports voiding normally, Reports pain well controlled, Reports ambulating normally : doing well, nursing well Objective - Vital Signs Latest vital signs: Vital Signs Temp Pulse Resp BP BP Pulse Ox 12/06/20 08:00 98.4 F 76 16 137/74 97 12/06/20 04:00 92 14 125/82 97 12/06/20 00:00 98.2 F 63 14 115/64 95 12/05/20 20:00 98.4 F 80 14 123/78 98 12/05/20 16:19 84 140/70 12/05/20 15:29 97.8 F 55 L 16 132/83 97 12/05/20 12:44 54 L 16 130/62 Intake and Output 12/05/20 12/06/20 12/06/20 22:59 06:59 14:59 Output Total 250 1600 Balance -250 -1600 Output: Urine 250 1600 Uretheral (Hurtado) 250 1600 Other: Voiding Method Indwelling Catheter # Voids 0 1 - Exam Extremities: Present: normal Abdomen: Present: normal appearance, soft. Absent: distention, tenderness Incision: Present: normal, dry, intact Uterus: Present: normal, firm (Uterine fundus is tonic and appropriately tender at the umbilicus.) - Labs Labs: Abnormal Lab Results - Last 24 Hours (Table) 12/06/20 Range/Units 05:52 WBC 13.4 H (3.8-10.6) k/uL RBC 2.92 L (3.80-5.40) m/uL Hgb 8.8 L (11.4-16.0) gm/dL Hct 26.1 L (34.0-46.0) % Neutrophils # 11.2 H (1.3-7.7) k/uL Assessment and Plan (1) Unfavorable cervix in term Current Visit: Yes Status: Acute Code(s): O34.40 - MATERNAL CARE FOR OTH ABNLT OF CERVIX, UNSP TRIMESTER SNOMED Code(s): 720820664 (2) Term Current Visit: Yes Status: Acute Code(s): Z34.90 - ENCNTR FOR SUPRVSN OF NORMAL , UNSP, UNSP TRIMESTER SNOMED Code(s): 92514574 (3) Insulin dependent diabetes mellitus Current Visit: Yes Status: Acute Code(s): FCH5588 - SNOMED Code(s): 44900117 (4) S/P section Current Visit: Yes Status: Acute Code(s): Z98.891 - HISTORY OF UTERINE SCAR FROM PREVIOUS SURGERY SNOMED Code(s): 577877479 Plan: Continue routine and postoperative care. The patient is managing her own blood sugars with her insulin pump and there reportedly recently well controlled at this time. I have strongly encouraged her to ambulate in the hallways routinely. I would anticipate possible discharge home tomorrow pending no complications.
[2020-12-06] MEDS: SIMETHICONE 80 MG CHEWABLE PO PRN ×2 (12:36→20:08)
--- NOTE | 2020-12-06 20:25 | P.PN ---
Progress Note - Text 12/06/20 [id number] 30-year-old female status post with spinal Duramorph. Patient seen and evaluated for postop pain control with a VAS of 4. Patient did have planes of nausea vomiting and pruritus which have both subside. Doing well
[2020-12-07] MEDS: IBUPROFEN 600 MG TAB PO SCH ×3 (00:06→13:04)
[2020-12-07] MEDS: ACETAMINOPHEN TAB 500 MG TAB PO SCH ×2 (02:38→09:28)
[2020-12-07] MEDS: LEVOTHYROXINE 112 MCG TAB PO SCH (06:36)
[2020-12-07 08:23] VITALS: BP 133/77; PULSE 82; RESP 16; TEMP 98.5
[2020-12-07] MEDS: SENNOSIDES-DOCUSATE SODIUM 1 EACH TAB PO SCH (09:27)
--- NOTE | 2020-12-07 11:20 | P.DS ---
Providers Date of admission: 12/05/20 07:50 Expected date of discharge: 12/07/20 Attending physician: Leon Chandler Primary care physician: Stated None - Discharge Diagnosis(es) (1) Unfavorable cervix in term Current Visit: Yes Status: Acute (2) Term Current Visit: Yes Status: Acute (3) Insulin dependent diabetes mellitus Current Visit: Yes Status: Acute (4) S/P section Current Visit: Yes Status: Acute Hospital Course: The patient is a 30-year-old 1 para 0 admitted at 38-3/7 weeks by good dating parameters. She is admitted for elective primary section secondary to a diagnosis of pre-gestational type 1 diabetes managed effectively with an insulin pump during the . She also had an suspected macrosomia with estimated weight just shy of 3900 g approximate a week prior to delivery. Her cervix was also known to be very unfavorable for induction. Given all these findings we had a discussion about attempted induction versus section and opted to proceed with primary low transverse section. She is also Rh- and received RhoGAM at 28 weeks. Group B strep status is positive. On labor and delivery, all signs reassuring. She was taken the operating room where she underwent a primary low-transverse section of a viable 8 lbs. 1 oz. baby girl with Apgars of 8 at 1 minute and 9 at 5 minutes. Her and postoperative course were essentially uncomplicated. She did have a moderate blood loss during surgery but was hemodynamically stable following surgery. Vital signs are stable and she was afebrile throughout. She was deemed stable for discharge on postoperative and day #2 and was discharged home to follow-up in the office in 2 weeks for an incision check and 6 weeks routinely. Discharge instructions included calling for any significantly increased bleeding or foul-smelling lochia, significantly increased fever abdominal pain, perineal complaints, breast complaints, incisional complaints, or anything else that concerned her. She is additionally instructed to have nothing in the vagina for at least 6 weeks time to include intercourse and to abstain from any heavy lifting over the same period of time. She was last instructed to do no driving until off of all pain medications or 2 weeks' time, whichever came first. She understood all of her instructions and agrees follow up as noted above. Discharge medications included continue will use of her insulin pump as well as [id number] analgesic pain medications as needed. She was additionally provided a prescription for Tylenol No. 3, 1-2 by mouth every 6 hours when necessary pain, #20 dispensed with no refills. Maternal blood type is O- and cord blood was sent for evaluation for the necessity of RhoGAM prior to discharge. Rubella status is immune. Discharge hemoglobin and hematocrit were 8.8 and 26.1 respectively. As a result, she was instructed to take iron sulfate daily for 1- 2 months to rebuild her hemoglobin. Procedures: #1. Primary low-transverse section Patient Condition at Discharge: Stable Plan - Discharge Summary Discharge Rx Participant: Yes New Discharge Prescriptions: No Action INSULIN LISPRO (For Pump) [humaLOG (For Pump)] 0.01 units SQ-PUMP CONTINUOUS Levothyroxine Sodium [Synthroid] 112 mcg PO DAILY Pnv No.95/Ferrous Fum/Folic AC [ Multivitamin Tablet] 1 tab PO DAILY Discharge Medication List INSULIN LISPRO (For Pump) [humaLOG (For Pump)] 0.01 units SQ-PUMP CONTINUOUS 03/26/17 [History] Levothyroxine Sodium [Synthroid] 112 mcg PO DAILY 03/26/17 [History] Pnv No.95/Ferrous Fum/Folic AC [ Multivitamin Tablet] 1 tab PO DAILY 10/30/20 [History] Follow up Appointment(s)/Referral(s): Leon Chandler MD [STAFF PHYSICIAN] - 2 Weeks Discharge Disposition: HOME SELF-CARE
== END 2020-12-07 13:10 | disposition home or self-care (01) | DRG 788 ==
LOC: 4FBP 07:50
PROVIDERS: ADMIT Obstetrics & Gynecology; ATTEND Obstetrics & Gynecology
PROC: 3E033VJ Introduction of Other Hormone into Peripheral Vein, Percutaneous Approach (ICD-10-PCS; 2020-12-05)
PROC: 10D00Z1 Extraction of Products of Conception, Low, Open Approach (ICD-10-PCS; principal; 2020-12-05 10:00)
DX: O24.424 Gestational diabetes mellitus in childbirth, insulin controlled (principal); O36.63X0 Maternal care for excessive fetal growth, third trimester, not applicable or unspecified; O99.824 Streptococcus B carrier state complicating childbirth; O34.13 Maternal care for benign tumor of corpus uteri, third trimester; O69.81X0 Labor and delivery complicated by cord around neck, without compression, not applicable or unspecified; O34.43 Maternal care for other abnormalities of cervix, third trimester; O99.283 Endocrine, nutritional and metabolic diseases complicating pregnancy, third trimester; E07.9 Disorder of thyroid, unspecified; O26.893 Other specified pregnancy related conditions, third trimester; Z67.41 Type O blood, Rh negative; O99.73 Diseases of the skin and subcutaneous tissue complicating the puerperium; D25.2 Subserosal leiomyoma of uterus; L29.9 Pruritus, unspecified; Z3A.38 38 weeks gestation of pregnancy; Z37.0 Single live birth; Z79.890 Hormone replacement therapy; Z96.41 Presence of insulin pump (external) (internal); Z88.1 Allergy status to other antibiotic agents
CPT/HCPCS: 85025; 85461; 86850; 86870; 86880; 86900; 86901; 88307

== ENCOUNTER → 2023-01-17 | Outpatient (CLI) | payer BC ==
--- NOTE | 2023-01-17 11:20 | MM ---
Reason for Exam: Clinical finding. Patient History: Menarche at age 12. First Full-Term at age 30. Late child-bearing (after 30). Patient has history of breast feeding. Last menstrual period: 12/16/2022 Tissue Density: The breast tissue is extremely dense which could obscure a lesion on mammography. Findings: Analyzed By CAD. No finding to correlate with palpable abnormality. No new suspicious masses, calcifications or distortions. Overall Assessment: Incomplete: need additional imaging evaluation, BI-RAD 0 Management: Diagnostic Breast Ultrasound of the right breast. Results were given to the patient verbally at the time of exam. Patient should continue monthly self-breast exams. A clinical breast exam by your physician is recommended on an annual basis. This exam should not preclude additional follow-up of suspicious palpable abnormalities. Note on Lyndsay scores and lifetime risk: 1. A Lyndsay score greater than 3% is considered moderate risk. If this is the case, consider specialist referral to assess eligibility for a risk reducing agent. 2. If overall lifetime risk for the development of breast cancer is 20% or higher, the patient may qualify for future screening with alternating mammogram and breast MRI. Electronically signed and approved by: Shar Valdez DO
--- NOTE | 2023-01-17 11:39 | USB ---
Reason for Exam: Clinical finding. Patient History: Menarche at age 12. First Full-Term at age 30. Late child-bearing (after 30). Patient has history of breast feeding. Technique: Method: Targeted. Findings: The upper outer quadrant of the right breast, the area of palpable concern of the right breast, the axilla of the right breast and the retroareolar of the right breast were scanned. Technique utilized:US breast limited RT Image; Ultrasound imaging of: Area of concern, retroareolar region and axilla. Nothing to correlate with area of palpable abnormality. No evidence for organizing fluid collection or mass. Overall Assessment: Negative, BI-RAD 1 Management: Screening Mammogram of both breasts at age 40. A clinical breast exam by your physician is recommended on an annual basis and results should be correlated with mammographic findings. This exam should not preclude additional follow-up of suspicious palpable abnormalities. Results were given to the patient verbally at the time of exam. Electronically signed and approved by: Shar Valdez DO
== END | disposition home or self-care (01) ==
LOC: RADMAMWWP 10:02
PROVIDERS: ATTEND Family Medicine
DX: N63.10 Unspecified lump in the right breast, unspecified quadrant (principal); R92.313 Mammographic fatty tissue density, bilateral breasts
CPT/HCPCS: 77062; 77066

== ENCOUNTER 2023-02-18 04:13 | Emergency (ER) | payer BC ==
[2023-02-18 05:36] LABS: Hyaline Casts,Urine 1 /lpf (0-2); Mucus,Urine Rare /hpf; RBC,Urine 6 /hpf (0-5); Squamous Epithelial Cell,Urine <1 /hpf (0-4); WBC,Urine 1 /hpf (0-5)
[2023-02-18 05:38] LABS: Appearance,Urine Clear (Clear); Bilirubin,Urine Negative (Negative); Blood,Urine Small (Negative); Color,Urine Yellow; Glucose,Urine (UA) Trace (Negative); Ketones,Urine Negative (Negative); Protein,Urine Negative (Negative)
[2023-02-18 05:39] LABS: Leukocyte Esterase,Urine Negative (Negative); Nitrite,Urine Negative (Negative); Urobilinogen,Urine 0.2 mg/dL (<2.0)
--- NOTE | 2023-02-18 06:31 | ED ---
General Adult HPI - General Source: patient, RN notes reviewed, old records reviewed Mode of arrival: ambulatory Limitations: no limitations <Brijesh Alexander - Last Filed: 02/18/23 07:17> <Christianne Tan - Last Filed: 02/18/23 14:31> - General Chief complaint: Urogenital Stated complaint: UTI Time Seen by Provider: 02/18/23 06:25 - History of Present Illness Initial comments: Patient is a 32-year-old female with past medical history remarkable for type 1 diabetes, UTIs, kidney stones who presents emergency Department complaining of suprapubic and left-sided flank pain. Has been ongoing for approximately a week. Was taking Keflex without much improvement. Is uncomfortable to sit and feels more like a UTI however is uncertain what is causing the discomfort. Presents for further evaluation. Denies any nausea. Denies any emesis. Describes the pain as sharp. He is to radiate around most of the left flank. No history of ovarian cysts. Is currently on her menstrual cycle. Denies being . Denies any vaginal discharge otherwise. No concern for STDs. Believe she may have a UTI and presents for antibiotics and testing. (Brijesh Alexander) - Related Data Home Medications Medication Instructions Recorded Confirmed INSULIN LISPRO (For Pump) [humaLOG 0.01 units SQ-PUMP CONTINUOUS 03/26/17 12/05/20 (For Pump)] Levothyroxine Sodium [Synthroid] 112 mcg PO DAILY 03/26/17 12/05/20 Pnv No.95/Ferrous Fum/Folic AC 1 tab PO DAILY 10/30/20 12/05/20 [ Multivitamin Tablet] Previous Rx's Medication Instructions Recorded Ketorolac [Toradol] 10 mg PO Q8HR #15 tab 02/18/23 Nitrofurantoin Monohyd/M-Cryst 100 mg PO Q12HR #20 cap 02/18/23 [Macrobid] Phenazopyridine [Pyridium] 200 mg PO TID #6 tablet 02/18/23 Allergies Allergy/AdvReac Type Severity Reaction Status Date / Time fluconazole Allergy Rash/Hives Verified 02/18/23 04:28 Review of Systems ROS Other: All systems not noted in ROS Statement are negative. <Brijesh Alexander - Last Filed: 02/18/23 07:17> ROS Other: All systems not noted in ROS Statement are negative. <Christianne Tan - Last Filed: 02/18/23 14:31> ROS Statement: Those systems with pertinent positive or pertinent negative responses have been documented in the HPI. Review of Systems: CONST: Denies fever EYES: Denies blurry vision ENT: Denies nasal congestion C/V: Denies Chest pain RESP: Denies shortness of breath GI: Endorses abdominal pain : Denies dysuria SKIN: Denies rash. MSK: Denies joint pain. NEURO: Denies headache (Brijesh Alexander) Past Medical History Past Medical History: Diabetes Mellitus, Thyroid Disorder Additional Past Medical History / Comment(s): type 1 diabetic History of Any Multi-Drug Resistant Organisms: None Reported Past Surgical History: Section, Orthopedic Surgery Additional Past Surgical History / Comment(s): right hip surg related to hip dysplasia Past Anesthesia/Blood Transfusion Reactions: No Reported Reaction Past Psychological History: No Psychological Hx Reported Smoking Status: Never smoker Past Alcohol Use History: Occasional Past Drug Use History: None Reported - Past Family History Mother Family Medical History: Diabetes Mellitus <Brijesh Alexander - Last Filed: 02/18/23 07:17> General Exam Limitations: no limitations <Brijesh Alexander - Last Filed: 02/18/23 07:17> - General Exam Comments Initial Comments: General: Appears in no acute distress. HEAD: Normal with no signs of head trauma. EYES: PERRLA, EOMI, conjunctiva normal, no discharge. ENT: Hearing grossly intact, normal oropharynx. RESPIRATORY: Clear breath sounds bilaterally. No wheezes, rales, or rhonchi. C/V: Regular rate and rhythm. S1 and S2 auscultated, no edema, peripheral pulses 2+ and intact throughout ABD: Abd is soft, nondistended. Tender to palpation in the suprapubic region as well as left flank. EXT: Normal range of motion, no obvious deformity SKIN: No rashes or lesions observed on exposed skin. NEURO: Alert and oriented 4. (Brijesh Alexander) Course Vital Signs 02/18/23 02/18/23 04:24 09:31 Temperature 98.9 F 98.2 F Pulse Rate 115 H 77 Respiratory 20 16 Rate Blood Pressure 124/85 112/74 O2 Sat by Pulse 98 99 Oximetry Medical Decision Making <Brijesh Alexander - Last Filed: 02/18/23 07:17> - Lab Data Result diagrams: 02/18/23 07:00 02/18/23 07:00 <Christianne Tan - Last Filed: 02/18/23 14:31> - Medical Decision Making Was pt. sent in by a medical professional or institution (, ED, RECREATION ADVISER, urgent care, hospital, or senior living...) When possible be specific @ -No Did you speak to anyone other than the patient for history (EMS, parent, family, police, friend...)? What history was obtained from this source @ -No Did you review nursing and triage notes (agree or disagree)? Why? @ -I reviewed and agree with nursing and triage notes Were old charts reviewed (outside hosp., previous admission, EMS record, old EKG, old radiological studies, urgent care reports/EKG's, senior living records)? Report findings @ -No old charts were reviewed Differential Diagnosis (chest pain, altered mental status, abdominal pain women, abdominal pain men, vaginal bleeding, weakness, fever, dyspnea, syncope, headache, dizziness, GI bleed, back pain, seizure, CVA, palpatations, mental health, musculoskeletal)? @ -Differential Abdominal Pain Women: Appendicitis, Cholecystitis, diverticulosis, ischemic bowel, pancreatitis, hepatitis, UTI, gastroenteritis, AAA, incarcerated hernia, bowel obstruction, constipation, inflammatory bowel, hepatitis, peptic ulcer disease, splenic infarction, perforated viscus, vulvitis, ovarian torsion, PID, kidney stone, placenta abruption, this is not meant to be an all-inclusive list EKG interpreted by me (3pts min.). @ -None done X-rays interpreted by me (1pt min.). @ -None done CT interpreted by me (1pt min.). @ -None done U/S interpreted by me (1pt. min.). @ -Pending What testing was considered but not performed or refused? (CT, X-rays, U/S, labs)? Why? @ -None What meds were considered but not given or refused? Why? @ -None Did you discuss the management of the patient with other professionals (professionals i.e. ED [facility], RECREATION ADVISER, lab, RT, psych nurse, foster care social worker, client architect, teacher, boat officer, case management manager)? Give summary @ -No Was smoking cessation discussed for >3mins.? @ -No Was critical care preformed (if so, how long)? @ -No Were there social determinants of health that impacted care today? How? (Homelessness, low income, unemployed, alcoholism, drug addiction, transportation, low edu. Level, literacy, decrease access to med. care, penitentiary, rehab)? @ -No Was there de-escalation of care discussed even if they declined (Discuss DNR or withdrawal of care, Hospice)? DNR status @ -No What co-morbidities impacted this encounter? (DM, HTN, Smoking, COPD, CAD, Cancer, CVA, ARF, Chemo, Hep., AIDS, mental health diagnosis, sleep apnea, morbid obesity)? @ -None Was patient admitted / discharged? Hospital course, mention meds given and route, prescriptions, significant lab abnormalities, going to OR and other pertinent info. @ -Based on the patient's presentation and physical exam, I'm concerned for injury abdominal process for the patient's current symptoms. She is concerned for UTI however I cannot definitively rule out other etiology at this time. We will obtain transvaginal ultrasound, as well as renal ultrasound to evaluate for possible ovarian torsion and kidney stones. We will also obtain basic labs. Urine studies were already obtained while the patient was in triage and remarkable for a negative test. Only a small amount of RBCs but no evidence of acute infection. Patient was in agreement this plan. Vital signs within acceptable limits. She'll be symptomatic treated with IV fluids, Zofran, Toradol. Patient signed out to Dr. Tan pending results of further workup. Undiagnosed new problem with uncertain prognosis? @ -No Drug Therapy requiring intensive monitoring for toxicity (Heparin, Nitro, Insulin, Cardizem)? @ -No Were any procedures done? @ -No (rBijesh Alexander) Was patient admitted / discharged? Hospital course, mention meds given and route, prescriptions, significant lab abnormalities, going to OR and other pertinent info. @ -Patient is signed out to me from Dr. Alexander. Laboratory studies are reviewed and within normal limits. Laboratory studies show 6 red blood cells. Ultrasound is performed of the patient's left kidney and uterus. Patient has good blood flow to both ovaries. Ultrasound demonstrates mild left hydronephrosis. Results are discussed the patient. Did discuss concern for passing stone due to hydronephrosis and hematuria. Offered a computed tomography scan however patient refused. Patient currently on antibiotics however they may be skewed. Patient's requesting updated antibiotics as her symptoms feel extremely similar to when she's had previous urinary tract infections. I will prescribe her Macrobid as well as Pyridium. She is to take the Pyridium for pain control. She may additionally take the Toradol plan concern for ureteral stone. She is to follow up with urology for further management of her symptoms and return for any new or worsening symptoms. Patient agreeable to plan she is discharged in stable condition Undiagnosed new problem with uncertain prognosis? @ -Yes Drug Therapy requiring intensive monitoring for toxicity (Heparin, Nitro, Insulin, Cardizem)? @ -No Were any procedures done? @ -No Diagnosis/symptom? @ -Acute dysuria, acute left flank pain, hematuria, left hydronephrosis, suspected kidney stone Acute, or Chronic, or Acute on Chronic? @ -Acute Uncomplicated (without systemic symptoms) or Complicated (systemic symptoms)? @ -Complicated Side effects of treatment? @ -No Exacerbation, Progression, or Severe Exacerbation? @ -No Poses a threat to life or bodily function? How? (Chest pain, [place], [place], pneumonia, PE, COPD, DKA, ARF, appy, cholecystitis, CVA, Diverticulitis, Homicidal, Suicidal, threat to staff... and all critical care pts) @ -No (Christianne Tan) - Lab Data Lab Results 02/18/23 02/18/23 02/18/23 Range/Units 04:29 04:29 07:00 WBC 6.7 (3.8-10.6) k/uL RBC 4.64 (3.80-5.40) m/uL Hgb 13.7 (11.4-16.0) gm/dL Hct 41.3 (34.0-46.0) % MCV 89.0 (80.0-100.0) fL MCH 29.6 (25.0-35.0) pg MCHC 33.2 (31.0-37.0) g/dL RDW 12.5 (11.5-15.5) % Plt Count 216 (150-450) k/uL MPV 9.1 Neutrophils % 75 % Lymphocytes % 15 % Monocytes % 7 % Eosinophils % 2 % Basophils % 0 % Neutrophils # 5.0 (1.3-7.7) k/uL Lymphocytes # 1.0 (1.0-4.8) k/uL Monocytes # 0.4 (0-1.0) k/uL Eosinophils # 0.1 (0-0.7) k/uL Basophils # 0.0 (0-0.2) k/uL Sodium (137-145) mmol/L Potassium (3.5-5.1) mmol/L Chloride (98-107) mmol/L Carbon Dioxide (22-30) mmol/L Anion Gap mmol/L BUN (7-17) mg/dL Creatinine (0.52-1.04) mg/dL Est GFR (CKD-EPI)AfAm (>60 ml/min/1.73 sqM) Est GFR (CKD-EPI)NonAf (>60 ml/min/1.73 sqM) Glucose (74-99) mg/dL Calcium (8.4-10.2) mg/dL Total Bilirubin (0.2-1.3) mg/dL AST (14-36) U/L ALT (4-34) U/L Alkaline Phosphatase (38-126) U/L Total Protein (6.3-8.2) g/dL Albumin (3.5-5.0) g/dL Urine Color Yellow Urine Appearance Clear (Clear) Urine pH 6.0 (5.0-8.0) Ur Specific [place] 1.010 (1.001-1.035) Urine Protein Negative (Negative) Urine Glucose (UA) Trace H (Negative) Urine Ketones Negative (Negative) Urine Blood Small H (Negative) Urine Nitrite Negative (Negative) Urine Bilirubin Negative (Negative) Urine Urobilinogen 0.2 (<2.0) mg/dL Ur Leukocyte Esterase Negative (Negative) Urine RBC 6 H (0-5) /hpf Urine WBC 1 (0-5) /hpf Ur Squamous Epith Cells <1 (0-4) /hpf Hyaline Casts 1 (0-2) /lpf Urine Mucus Rare H (None) /hpf Urine HCG, Qual Not Detected (Not Detectd) 02/18/23 Range/Units 07:00 WBC (3.8-10.6) k/uL RBC (3.80-5.40) m/uL Hgb (11.4-16.0) gm/dL Hct (34.0-46.0) % MCV (80.0-100.0) fL MCH (25.0-35.0) pg MCHC (31.0-37.0) g/dL RDW (11.5-15.5) % Plt Count (150-450) k/uL MPV Neutrophils % % Lymphocytes % % Monocytes % % Eosinophils % % Basophils % % Neutrophils # (1.3-7.7) k/uL Lymphocytes # (1.0-4.8) k/uL Monocytes # (0-1.0) k/uL Eosinophils # (0-0.7) k/uL Basophils # (0-0.2) k/uL Sodium 139 (137-145) mmol/L Potassium 3.6 (3.5-5.1) mmol/L Chloride 104 (98-107) mmol/L Carbon Dioxide 23 (22-30) mmol/L Anion Gap 12 mmol/L BUN 15 (7-17) mg/dL Creatinine 0.72 (0.52-1.04) mg/dL Est GFR (CKD-EPI)AfAm >90 (>60 ml/min/1.73 sqM) Est GFR (CKD-EPI)NonAf >90 (>60 ml/min/1.73 sqM) Glucose 149 H (74-99) mg/dL Calcium 9.6 (8.4-10.2) mg/dL Total Bilirubin 0.9 (0.2-1.3) mg/dL AST 24 (14-36) U/L ALT 15 (4-34) U/L Alkaline Phosphatase 80 (38-126) U/L Total Protein 7.5 (6.3-8.2) g/dL Albumin 4.3 (3.5-5.0) g/dL Urine Color Urine Appearance (Clear) Urine pH (5.0-8.0) Ur Specific [place] (1.001-1.035) Urine Protein (Negative) Urine Glucose (UA) (Negative) Urine Ketones (Negative) Urine Blood (Negative) Urine Nitrite (Negative) Urine Bilirubin (Negative) Urine Urobilinogen (<2.0) mg/dL Ur Leukocyte Esterase (Negative) Urine RBC (0-5) /hpf Urine WBC (0-5) /hpf Ur Squamous Epith Cells (0-4) /hpf Hyaline Casts (0-2) /lpf Urine Mucus (None) /hpf Urine HCG, Qual (Not Detectd) Disposition <BenjaminBrijesh - Last Filed: 02/18/23 07:17> Is patient prescribed a controlled substance at d/c from ED?: No Time of Disposition: 09:06 <BritneyChristianne Kirt - Last Filed: 02/18/23 14:31> Clinical Impression: Cyst of right kidney, Hydronephrosis, left, Dysuria Disposition: HOME SELF-CARE Condition: Stable Instructions (If sedation given, give patient instructions): Dysuria (ED) Additional Instructions: Take the antibiotics as directed. Use the Pyridium for pain control. If you have continued symptoms, take the Toradol. Call and make an appointment with [facility] urologist for further evaluation of your symptoms and return for any new or worsening symptoms Prescriptions: Nitrofurantoin Monohyd/M-Cryst [Macrobid] 100 mg PO Q12HR #20 cap Phenazopyridine [Pyridium] 200 mg PO TID #6 tablet Ketorolac [Toradol] 10 mg PO Q8HR #15 tab Referrals: Savanna Persaud DO [Primary Care Provider] - 1-2 days Neptali Zavala MD [STAFF PHYSICIAN] - 1-2 days
[2023-02-18] MEDS ORDERED: KETOROLAC 15 MG/ML 1 ML VIAL IVP STA (06:50)
[2023-02-18] MEDS ORDERED: SODIUM CHLORIDE 0.9% 1,000 ML IV STA (06:50)
[2023-02-18] MEDS ORDERED: ONDANSETRON 4 MG/2 ML VIAL IVP STA (06:50)
[2023-02-18 07:20] LABS: Basophils % (A) 0 %; Eosinophils # (A) 0.1 k/uL (0-0.7); Eosinophils % (A) 2 %; HCT 41.3 % (34.0-46.0); HGB 13.7 gm/dL (11.4-16.0); Lymphocytes % (A) 15 %; MCH 29.6 pg (25.0-35.0); MCHC 33.2 g/dL (31.0-37.0); Mean Platelet Volume 9.1; Monocytes # (A) 0.4 k/uL (0-1.0); Monocytes % (A) 7 %; Neutrophils % (A) 75 %; Platelet Count 216 k/uL (150-450); RBC 4.64 m/uL (3.80-5.40); RDW 12.5 % (11.5-15.5); WBC 6.7 k/uL (3.8-10.6)
[2023-02-18 08:05] LABS: ALT 15 U/L (4-34); AST 24 U/L (14-36); African American GFR (CKD) >90 (>60 ml/min/1.73 sqM); Albumin 4.3 g/dL (3.5-5.0); Alkaline Phosphatase 80 U/L (38-126); Anion Gap 12 mmol/L; Blood Urea Nitrogen 15 mg/dL (7-17); Calcium 9.6 mg/dL (8.4-10.2); Carbon Dioxide 23 mmol/L (22-30); Chloride 104 mmol/L (98-107); Glucose 149 mg/dL (74-99); Non-African American GFR(CKD) >90 (>60 ml/min/1.73 sqM); Potassium 3.6 mmol/L (3.5-5.1); Sodium 139 mmol/L (137-145); Total Bilirubin 0.9 mg/dL (0.2-1.3); Total Protein 7.5 g/dL (6.3-8.2)
--- NOTE | 2023-02-18 08:14 | US ---
EXAMINATION TYPE: US kidneys/renal and bladder DATE OF EXAM: 02/18/2023 COMPARISON: 03/27/2017 CT CLINICAL INDICATION: Female, 32 years old with history of eval for hydronephrosis/abn; hx renal stone s and hydronephrosis. Left side pain. Type 1 diabetic. Patient just voided before exam. EXAM MEASUREMENTS: Right Kidney: 12.3 x 5.0 x 4.1 cm Left Kidney: 9.8 x 4.2 x 5.1 cm Right Kidney: medial anechoic lesion at hilum = 1.8 cm compatible with cyst. No hydronephrosis. Left Kidney: Mild hydronephrosis Bladder: mildly distended Bilateral Jets not seen IMPRESSION: Mild left hydronephrosis , no calculus visualized.
--- NOTE | 2023-02-18 08:23 | US ---
EXAMINATION TYPE: US pelvic complete DATE OF EXAM: 02/18/2023 COMPARISON: NONE CLINICAL INDICATION: Female, 32 years old with history of eval for torsion; Left side pain. TECHNIQUE: Transabdominal (TA). Transabdominal sonographic images of the pelvis were acquired. Date of LMP: 02/16/23, EXAM MEASUREMENTS: Uterus: 8.1 x 6.2 x 4.0 cm Endometrial Stripe: 0.6 cm Right Ovary: 3.2 x 1.9 x 1.8 cm Left Ovary: 2.9 x 1.7 x 1.6 cm 1. Uterus: Anteverted wnl 2. Endometrium: wnl 3. Right Ovary: Follicles seen 4. Left Ovary: Follicles seen Spectral, color and waveform doppler imaging shows good arterial and venous flow within the ovaries ; there is no evidence for ovarian torsion. 5. Bilateral Adnexa: wnl 6. Posterior cul-de-sac: free fluid IMPRESSION: No evidence for acute process. Appropriate arterial venous spectral waveforms to the ovaries.
[2023-02-18] MEDS ORDERED: LIDOCAINE 5% PATCH TOPICAL ONE (09:25)
[2023-02-18 09:54] VITALS: BP 112/74; PULSE 77; RESP 16; TEMP 98.2
== END 2023-02-18 09:32 | disposition home or self-care (01) ==
LOC: EC 04:13
DX: N13.30 Unspecified hydronephrosis (principal); N28.1 Cyst of kidney, acquired; E10.9 Type 1 diabetes mellitus without complications; E07.9 Disorder of thyroid, unspecified; Z79.890 Hormone replacement therapy; Z88.3 Allergy status to other anti-infective agents
CPT/HCPCS: 99284 ×2; 96374 ×2; 96375 ×2; 96361 ×2; 36415; 80053; 85025; 81001; 81025; 93975; 76856; 76770; J2405; J1885

== ENCOUNTER → 2023-02-24 | Outpatient (CLI) | payer BC ==
--- NOTE | 2023-02-24 14:18 | CT ---
EXAMINATION TYPE: CT abdomen pelvis wo con DATE OF EXAM: 02/24/2023 HISTORY: bilateral flank pain x 3-[address] DLP: 357.1 mGycm. Automated Exposure Control for Dose Reduction was Utilized. TECHNIQUE: CT scan of the abdomen and pelvis is performed without oral or IV contrast. COMPARISON: Prior CT March 27, 2017 FINDINGS: Within the limitations of a non-contrast study, the following observations are made. LUNG BASES: No significant abnormality is appreciated. LIVER/GB: No significant abnormality is appreciated. PANCREAS: No significant abnormality is seen. SPLEEN: No significant abnormality is seen. ADRENALS: No significant abnormality is seen. KIDNEYS: No renal stones seen bilaterally. No right-sided hydronephrosis. Mild left-sided hydronephro sis due to obstructing 2 mm calculus in the distal left ureter axis image 117. Additional small calci fications in the pelvis favor bilateral phleboliths. BOWEL: No abnormal small or large bowel dilatation. GENITAL ORGANS: Anteverted uterus. LYMPH NODES: No greater than 1cm abdominal or pelvic lymph nodes are appreciated. OSSEOUS STRUCTURES: Posterior spur disc complex L4-L5 level effaces anterior thecal sac sagittal imag e 65. OTHER: No significant additional abnormality is seen. IMPRESSION: There is 2 mm distal left ureter calculus causing mild left-sided hydronephrosis.
== END | disposition home or self-care (01) ==
LOC: RADCTMAIN 13:32
PROVIDERS: ATTEND Urology
DX: N13.2 Hydronephrosis with renal and ureteral calculous obstruction (principal); N23 Unspecified renal colic
CPT/HCPCS: 74176